=== PATIENT | male | born 1940 | race Asian ===

== ENCOUNTER → 2020-07-17 | Day surgery (SDC) | payer MEDICARE, OTHER ==
[2020-07-15 15:37] LABS: COVID AG,FIA SOURCE NASOPHARYNGEAL
[~2020-07-17] VITALS: Ht 158.8 cm; Wt 60.9 kg
[~2020-07-17] MED LIST: ACET-2080 PO; AMLO-257 PO; ASA PO; ATOR20TA86 PO; BALANCED SALT 15 ML OPHTHALMIC IRRIG.SOLN OD ONE; CHONDR SULF A SOD/HYALURONATE 1.05 ML KIT IO ONE; COLC0.6T73 PO; EPINEPHrine 1:1,000 [1 MG/ML] AMP IM ONE; FentaNYL CITRATE PF 100 MCG/2 ML VIAL IVP ONE; KETOROLAC TROMETHAMINE 0.5% 5 ML OPHTHALMIC SOLUTION ONE; LIDOCAINE/PF 1% 2 ML VIAL IM ONE; MIDAZOLAM HCL 2 MG/2 ML VIAL IVP ONE; MOXIFLOXACIN HCL 0.5% 3 ML OPHTHALMIC SOLUTION ONE; PHENYLEPHRINE HCL 2.5% 2 ML OPHTHALMIC SOLUTION ONE; POVIDONE-IODINE 10% 15 ML SOLUTION UD TP ONE; PRED5TAB PO; RINGERS SOLUTION,LACTATED 0 ML IV ONE; SODIUM CHLORIDE 0.9% 500 ML IV ONE; TETRACAINE HCL/PF 0.5% 4 ML OPHTHALMIC SOLUTION OD ONE; TROPICAMIDE 1% 2 ML OPHTHALMIC SOLUTION ONE; VALS160T2 PO
[2020-07-17] MEDS: TROPICAMIDE 1% 2 ML OPHTHALMIC SOLUTION OD SCH ×3 (06:33→06:48)
[2020-07-17] MEDS: MOXIFLOXACIN HCL 0.5% 3 ML OPHTHALMIC SOLUTION OD SCH ×3 (06:33→06:48)
[2020-07-17] MEDS: KETOROLAC TROMETHAMINE 0.5% 5 ML OPHTHALMIC SOLUTION OD SCH ×3 (06:34→06:48)
[2020-07-17] MEDS: PHENYLEPHRINE HCL 2.5% 2 ML OPHTHALMIC SOLUTION OD SCH ×3 (06:34→06:48)
[2020-07-17 06:53] LABS: GLUCOMETER DEV NAME(LOC) SDS.; GLUCOSE,POINT OF CARE 116 MG/DL (70-110)
== END | disposition home or self-care (01) ==
LOC: SURGERY 05:58
PROVIDERS: ATTEND Ophthalmology
DX: E10.36 Type 1 diabetes mellitus with diabetic cataract (principal); H25.11 Age-related nuclear cataract, right eye; I10 Essential (primary) hypertension; Z79.899 Other long term (current) drug therapy; Z98.890 Other specified postprocedural states
CPT/HCPCS: 66984; 82962; 87426; 93005; A9575; C9803; J0171; J2250; J3010; J3490; J7040; V2632; J7120

== ENCOUNTER → 2023-08-04 | Outpatient (CLI) | payer MEDICARE, OTHER ==
[~2023-08-04] MED LIST changes: +ATOR20TA PO; -ATOR20TA86 PO; -BALANCED SALT 15 ML OPHTHALMIC IRRIG.SOLN OD ONE; -CHONDR SULF A SOD/HYALURONATE 1.05 ML KIT IO ONE; -EPINEPHrine 1:1,000 [1 MG/ML] AMP IM ONE; -FentaNYL CITRATE PF 100 MCG/2 ML VIAL IVP ONE; -KETOROLAC TROMETHAMINE 0.5% 5 ML OPHTHALMIC SOLUTION ONE; -LIDOCAINE/PF 1% 2 ML VIAL IM ONE; -MIDAZOLAM HCL 2 MG/2 ML VIAL IVP ONE; -MOXIFLOXACIN HCL 0.5% 3 ML OPHTHALMIC SOLUTION ONE; -PHENYLEPHRINE HCL 2.5% 2 ML OPHTHALMIC SOLUTION ONE; -POVIDONE-IODINE 10% 15 ML SOLUTION UD TP ONE; -RINGERS SOLUTION,LACTATED 0 ML IV ONE; -SODIUM CHLORIDE 0.9% 500 ML IV ONE; -TETRACAINE HCL/PF 0.5% 4 ML OPHTHALMIC SOLUTION OD ONE; -TROPICAMIDE 1% 2 ML OPHTHALMIC SOLUTION ONE
[2023-08-04 08:48] LABS: HEMATOCRIT 30.4 % (41-53); HEMOGLOBIN 9.6 g/dL (13.5-17.5)
[2023-08-04 08:59] LABS: CREATININE,URINE RANDOM 99.7 mg/dL (30.0-125.0)
[2023-08-04 09:04] LABS: CALCIUM, TOTAL 8.3 mg/dL (8.8-10.5); CHOL/HDL RATIO 2.8 (4.2-7.3); CREATININE 4.88 mg/dL (0.60-1.30); PHOSPHORUS 5.1 mg/dL (2.5-4.9); POTASSIUM 5.1 mmol/L (3.5-5.1)
[2023-08-05 08:06] LABS: PARATHYROID HORMONE INTACT 93 pg/mL (15-65)
== END | disposition home or self-care (01) ==
LOC: LABMN 08:13
PROVIDERS: ATTEND Internal Medicine Nephrology
DX: E11.22 Type 2 diabetes mellitus with diabetic chronic kidney disease (principal); N18.4 Chronic kidney disease, stage 4 (severe); E78.5 Hyperlipidemia, unspecified; D63.1 Anemia in chronic kidney disease
CPT/HCPCS: 80048; 80061; 82570; 83970; 84100; 84156; 85014; 85018

== ENCOUNTER → 2024-12-15 | Outpatient (CLI) | payer MEDICARE, OTHER ==
[~2024-12-15] MED LIST changes: +COLC-3 PO; -COLC0.6T73 PO
[2024-12-15 08:40] LABS: APPEARANCE,URINE CLEAR (CLEAR); GLUCOSE, URINE (UA) TRACE mg/dL (NEGATIVE); LEUKOCYTE ESTERASE ,URINE NEGATIVE (NEGATIVE); NITRATE,URINE NEGATIVE (NEGATIVE); OCCULT BLOOD,URINE NEGATIVE (NEGATIVE); SPECIFIC GRAVITIY, URINE 1.011 (1.003-1.030)
[2024-12-15 08:53] LABS: CREATININE,URINE RANDOM 57.7 mg/dL (30.0-125.0); PROTEIN,URINE RANDOM 223 mg/dL (0-11.9)
[2024-12-15 08:55] LABS: SULFOSALICYLIC ACID,URINE 3+ (Negative)
[2024-12-15 09:00] LABS: SQUAMOUS EPITHELIAL CELL,UR None Seen /LPF (None Seen)
[2024-12-15 09:22] LABS: ASPARTATE AMINOTRANSFERASE 25.0 U/L (15-37); CALCIUM, TOTAL 7.4 mg/dL (8.8-10.5); CREATININE 5.83 mg/dL (0.60-1.30); GLOMERULAR FILTR. RATE CALC 9.0 mL/min (>60); GLUCOSE,RANDOM 116.0 mg/dL (70-110); SODIUM SERUM 141.0 mmol/L (136-145); TOTAL PROTEIN, SERUM 5.9 g/dL (6.4-8.2)
[2024-12-15 10:14] LABS: UREA NITROGEN, BLOOD 106.0 mg/dL (7-18)
== END | disposition home or self-care (01) ==
LOC: LABMN 08:13
PROVIDERS: ATTEND Internal Medicine Nephrology
DX: E11.22 Type 2 diabetes mellitus with diabetic chronic kidney disease (principal); N18.5 Chronic kidney disease, stage 5; D63.1 Anemia in chronic kidney disease
CPT/HCPCS: 80053; 81001; 81002; 82570; 83036; 83970; 84156

== ENCOUNTER → 2025-03-05 | Outpatient (CLI) | payer MEDICARE, OTHER ==
[2025-03-05 09:07] LABS: CALCIUM, TOTAL 7.3 mg/dL (8.8-10.5); CREATININE 7.12 mg/dL (0.60-1.30); GLOMERULAR FILTR. RATE CALC 7.0 mL/min (>60); GLUCOSE,RANDOM 112.0 mg/dL (70-110); SODIUM SERUM 144.0 mmol/L (136-145); UREA NITROGEN, BLOOD 77.0 mg/dL (7-18)
[2025-03-05 09:12] LABS: CHOL/HDL RATIO 2.6 (4.2-7.3); LDL CHOL (CALC.) 62.0 mg/dL (0-130); PHOSPHORUS 7.5 mg/dL (2.5-4.9)
[2025-03-05 09:14] LABS: APPEARANCE,URINE CLEAR (CLEAR); GLUCOSE, URINE (UA) 70-100 mg/dL (NEGATIVE); LEUKOCYTE ESTERASE ,URINE NEGATIVE (NEGATIVE); NITRATE,URINE NEGATIVE (NEGATIVE); OCCULT BLOOD,URINE TRACE (NEGATIVE); SPECIFIC GRAVITIY, URINE 1.017 (1.003-1.030)
[2025-03-05 09:22] LABS: SULFOSALICYLIC ACID,URINE 3+ (Negative)
[2025-03-05 09:24] LABS: SQUAMOUS EPITHELIAL CELL,UR Few /LPF (None Seen)
[2025-03-05 14:49] LABS: CREATININE,URINE RANDOM 100.4 mg/dL (30.0-125.0); PROTEIN,URINE RANDOM 460.0 mg/dL (0-11.9)
== END | disposition home or self-care (01) ==
LOC: LABMN 08:18
PROVIDERS: ATTEND Internal Medicine Nephrology
DX: I12.0 Hypertensive chronic kidney disease with stage 5 chronic kidney disease or end stage renal disease (principal); N18.5 Chronic kidney disease, stage 5; E11.22 Type 2 diabetes mellitus with diabetic chronic kidney disease; E78.5 Hyperlipidemia, unspecified; D63.1 Anemia in chronic kidney disease
CPT/HCPCS: 80048; 80061; 81001; 81002; 82570; 84100; 84156; 85014; 85018